=== PATIENT | male | born 1950 | race Caucasian/White ===

== ENCOUNTER 2021-09-08 09:29 | Emergency (ER) | payer MEDICARE, OTHER ==
[~2021-09-08] VITALS: Ht 180.3 cm; Wt 105.0 kg
[2021-09-08] MEDS ORDERED: OMEPRAZOLE DR40 MG PO (10:54)
[2021-09-08] MEDS ORDERED: ACYCLOVIR400 MG PO (10:54)
[2021-09-08] MEDS ORDERED: 24HR ALLERGY R180 MG PO (10:54)
[2021-09-08] MEDS ORDERED: BENAZEPRIL20 M1 PO (10:55)
[2021-09-08] MEDS ORDERED: AMLODIPINE BESY10 MG PO (10:55)
[2021-09-08] MEDS ORDERED: BETAMETH DIP0.05 % TOP (10:57)
[2021-09-08] MEDS ORDERED: VOLTAREN1%GEL TOP (11:00)
[2021-09-08] MEDS ORDERED: TOPROL XL100 MG PO (11:02)
[2021-09-08] MEDS ORDERED: TYLENOL 8 HOUR650 MG PO (11:02)
[2021-09-08] MEDS ORDERED: IPRATROPIUM BROMIDE IN (11:03)
[2021-09-08 11:30] VITALS: BP 131/79
== END 2021-09-08 11:30 | disposition home or self-care (01) ==
LOC: ED 09:29
DX: S01.01XA Laceration without foreign body of scalp, initial encounter (principal); W01.0XXA Fall on same level from slipping, tripping and stumbling without subsequent striking against object, initial encounter; Y93.69 Activity, other involving other sports and athletics played as a team or group; S09.90XA Unspecified injury of head, initial encounter; M79.662 Pain in left lower leg

== ENCOUNTER 2021-09-18 11:17 | Emergency (ER) | payer MEDICARE, OTHER ==
[~2021-09-18] VITALS: Ht 180.3 cm; Wt 100.0 kg
[~2021-09-18 11:17] MED LIST: 24HR ALLERGY R180 MG PO; ACYCLOVIR400 MG PO; AMLODIPINE BESY10 MG PO; BENAZEPRIL20 M1 PO; BETAMETH DIP0.05 % TOP; IPRATROPIUM BROMIDE IN; OMEPRAZOLE DR40 MG PO; TOPROL XL100 MG PO; TYLENOL 8 HOUR650 MG PO; VOLTAREN1%GEL TOP
[2021-09-18 12:04] VITALS: BP 145/78
== END 2021-09-18 12:51 | disposition home or self-care (01) ==
LOC: ED 11:17
DX: S01.01XD Laceration without foreign body of scalp, subsequent encounter (principal); X58.XXXD Exposure to other specified factors, subsequent encounter; I10 Essential (primary) hypertension